=== PATIENT | female | born 1990 | race Caucasian/White ===

== ENCOUNTER 2017-06-30 16:01 | Emergency (ER) | payer OTHER ==
[~2017-06-30] VITALS: Ht 162.6 cm; Wt 72.6 kg
--- OUTSIDE RECORDS SUMMARY | ~2017-06-30 | XMS ---
Demographics + + + | Address | [address] | | | [place] [address] | + + + | Preferred Language | Unknown | + + + | Marital Status | Unknown | + + + | Shinto Affiliation | Unknown | + + + | Race | Unknown | + + + | Ethnic Group | Unknown | + + + Author + + + | Author | [facility] | + + + | Organization | [facility] | + + + | Address | [address] | | | [place] [address] | + + + | Phone | | + + + Care Team Providers + + + + | Care College Sports Coach Name | Role | Phone | + + + + Unavailable | Unavailable | + + + + PROBLEMS Unknown Problems ALLERGIES Unknown Allergies SOCIAL HISTORY No smoking Hx information available PLAN OF CARE VITAL SIGNS MEDICATIONS Unknown Medications RESULTS No Results PROCEDURES No Known procedures IMMUNIZATIONS No Known Immunizations"
[~2017-06-30 16:01] MED LIST: DOXYCYCLINE HY100 MG PO; NORCO 5-325 TA1 EACH PO; PRENACARE TABL1 EACH PO; PROVENTIL HFA6.7 GM INH; TRAMADOL HCL50 MG PO; ZITHROMAX250 MG PO
--- NOTE | 2017-07-01 04:59 | EKG ---
[facility] [address] [facility] [place], [place] [address] Signed Normal sinus rhythm Normal ECG No previous ECGs available Confirmed by LUCERO SEXTON MD ([id number]) on 07/01/2017 4:58:49 AM Electronically Signed By: LUCERO SEXTON MD 07/01/17 0459 PATIENT NAME: BRITTANEY GUIDRY Electrocardiogram DATE OF : 89 PHYSICIAN: LUCERO SEXTON MD REPORT #: [id number] REPORT IS CONFIDENTIAL AND NOT TO BE RELEASED WITHOUT AUTHORIZATION
== END 2017-06-30 20:30 | disposition home or self-care (01) ==
LOC: ED 16:01
DX: R09.1 Pleurisy (principal); F17.200 Nicotine dependence, unspecified, uncomplicated
CPT/HCPCS: 36415; 71046; 85379; 93005; 93010; 96372; 99283; J1885

== ENCOUNTER 2018-02-22 21:58 | Inpatient (IN) | payer OTHER ==
--- OUTSIDE RECORDS SUMMARY | ~2018-02-22 | XMS | Clinical Summary ---
Demographics + + + | Address | [address] | | | [place] [address] | + + + | Home Phone | | + + + | Preferred Language | Unknown | + + + | Marital Status | Single | + + + | Restorationism Affiliation | Unknown | + + + | Race | Unknown | + + + | Ethnic Group | Unknown | + + + Author + + + | Author | [facility] | + + + | Organization | [facility] | + + + | Address | Unknown | + + + | Phone | Unavailable | + + + Care Team Providers + +------+ + | Care Barrel Inspector Tight Name | Role | Phone | + +------+ + | Dash Oneil DO | PP | | + +------+ + Allergies Not on File Current Medications Not on file Active Problems Not on file Social History + +-------+ +--------+------+ | Tobacco Use | Types | Packs/Day | Years | Date | | | | | Used | | + +-------+ +--------+------+ | Never Assessed | | | | | + +-------+ +--------+------+ + + + | Sex Assigned at | Date Recorded | | | | + + + | Not on file | | + + + Plan of Treatment Not on file Results Not on filefrom Last 3 Months"
--- OUTSIDE RECORDS SUMMARY | ~2018-02-22 | XMS | Clinical Summary ---
Demographics + + + | Address | [address] | | | [place] [address] | + + + | Home Phone | | + + + | Preferred Language | Unknown | + + + | Marital Status | Single | + + + | Pentecostal Affiliation | Unknown | + + + | Race | Unknown | + + + | Ethnic Group | Unknown | + + + Author + + + | Author | [facility] | | | and [place] | + + + | Organization | [facility] | | | and [place] | + + + | Address | Unknown | + + + | Phone | Unavailable | + + + Support + + +---------+ + | Name | Relationship | Address | Phone | + + +---------+ + | Nicky Dorado | ECON | Unknown | | + + +---------+ + Care Team Providers + +------+ + | Care Performance Engineer Name | Role | Phone | + +------+ + | Yareli Zurita NP | PP | | + +------+ + Allergies No Known Allergies Current Medications + + +-------+---------+------+------+-------+ | Prescription | Sig. | Disp. | Refills | Star | End | Statu | | | | | | t | Date | s | | | | | | Date | | | + + +-------+---------+------+------+-------+ | sertraline | Take 100 mg by mouth | | | | | Activ | | (ZOLOFT) 100 mg | Daily. | | | | | e | | tablet | | | | | | | + + +-------+---------+------+------+-------+ | buPROPion | Take 100 mg by mouth | | | | | Activ | | (WELLBUTRIN) 100 mg | 2 times daily. | | | | | e | | tablet | | | | | | | + + +-------+---------+------+------+-------+ Active Problems No known active problems Family History + + +------+ + | Medical History | Relation | Name | Comments | + + +------+ + | Hypertension | Maternal | | | | | Grandfath | | | | | er | | | + + +------+ + | Diabetes | Maternal | | | | | Grandmoth | | | | | er | | | + + +------+ + | Hypertension | Maternal | | | | | Grandmoth | | | | | er | | | + + +------+ + + +------+--------+ + | Relation | Name | Status | Comments | + +------+--------+ + | Maternal Grandfather | | | | + +------+--------+ + | Maternal Grandmother | | | | + +------+--------+ + Social History + + + +--------+ + | Tobacco Use | Types | Packs/Day | Years | Date | | | | | Used | | + + + +--------+ + | Former Smoker | E-Cigarettes | | 12 | 06/02/2004 - | | | | | | 06/02/2016 | + + + +--------+ + + +---+---+---+ | Smokeless Tobacco: | | | | | Never Used | | | | + +---+---+---+ + + | Comments: vapes about 2 times daily | + + + + +---------+ + | Alcohol Use | Drinks/We | oz/Week | Comments | | | ek | | | + + +---------+ + | No | | | | + + +---------+ + + + + | Sex Assigned at | Date Recorded | | | | + + + | Not on file | | + + + Last Filed Vital Signs + + + + | Vital Sign | Reading | Time Taken | + + + + | Blood Pressure | 122/70 | 12/31/2016831 PDT | + + + + | Pulse | 115 | 12/31/2016831 PDT | + + + + | Temperature | - | - | + + + + | Respiratory Rate | 16 | 12/31/2016831 PDT | + + + + | Oxygen Saturation | 90% | 12/31/2016831 PDT | + + + + | Inhaled Oxygen | - | - | | Concentration | | | + + + + | Weight | 66.7 kg (147 lb) | 12/31/2016831 PDT | + + + + | Height | 165.1 cm (5' 5") | 12/31/2016831 PDT | + + + + | Body Mass Index | 24.46 | 12/31/2016831 PDT | + + + + Plan of Treatment + + + + + | Health Maintenance | Due Date | Last Done | Comments | + + + + + | Vaccine: HPV (1 of 3 | | | | | - Female 3-dose | 2 | | | | series) | | | | + + + + + | Vaccine: | | | | | Dtap/Tdap/Td (1 - | 0 | | | | Tdap) | | | | + + + + + | Cervical Cancer | | | | | Screening (Pap) | 2 | | | + + + + + | Vaccine: Influenza | | | | | (#1) | 8 | | | + + + + + Results Not on filefrom Last 3 Months Insurance + +--------+ +--------+ +---------+ | Payer | Benefi | Subscriber | Type | Phone | Address | | | t Plan | ID | | | | | | / | | | | | | | Group | | | | | + +--------+ +--------+ +---------+ | [employer] | [employer] | [id number] | Medica | [phone] | | MEDICAID HMO | HEALTH | | id | [id number] | | | | [place] | | | | | | [place] | | | | | + +--------+ +--------+ +---------+ + +--------+ +--------+ + + | Guarantor Name | Accoun | Relation to | Date | Phone | Billing Address | | | t Type | Patient | of | | | | | | | | | | + +--------+ +--------+ + + | BRITTANEY GUIDRY | Person | Self [birth year] Home: | [address], | | | al/Fam | | 1989 | [phone] | [address] [place], | | | [place] | | | [phone] | [place] [address] | + +--------+ +--------+ + +
[2018-02-23] MEDS ORDERED: PRENA1 CHEW TA1.4 MG PO (01:56)
== END 2018-02-24 11:40 | disposition home or self-care (01) | DRG 774 ==
LOC: FBCO 21:58 → FBC 22:30
PROVIDERS: ADMIT Obstetrics & Gynecology
PROC: 10907ZC Drainage of Amniotic Fluid, Therapeutic from Products of Conception, Via Natural or Artificial Opening (ICD-10-PCS; 2018-02-22)
PROC: 00HU33Z Insertion of Infusion Device into Spinal Canal, Percutaneous Approach (ICD-10-PCS; 2018-02-22)
PROC: 3E0R3BZ Introduction of Anesthetic Agent into Spinal Canal, Percutaneous Approach (ICD-10-PCS; 2018-02-22)
PROC: 10E0XZZ Delivery of Products of Conception, External Approach (ICD-10-PCS; principal; 2018-02-23)
DX: O98.42 Viral hepatitis complicating childbirth (principal); O99.324 Drug use complicating childbirth; B19.20 Unspecified viral hepatitis C without hepatic coma; O76 Abnormality in fetal heart rate and rhythm complicating labor and delivery; O99.334 Smoking (tobacco) complicating childbirth; F17.210 Nicotine dependence, cigarettes, uncomplicated; O69.81X0 Labor and delivery complicated by cord around neck, without compression, not applicable or unspecified; F12.10 Cannabis abuse, uncomplicated; F15.10 Other stimulant abuse, uncomplicated; Z86.19 Personal history of other infectious and parasitic diseases; Z91.14 Patient's other noncompliance with medication regimen; Z3A.38 38 weeks gestation of pregnancy; Z37.0 Single live birth
CPT/HCPCS: 36415; 83036; 85027; J2590; J7120

== ENCOUNTER 2019-07-20 16:22 | Inpatient (IN) | payer OTHER ==
[~2019-07-20] VITALS: Ht 162.6 cm; Wt 78.0 kg
[~2019-07-20 16:22] MED LIST changes: +PRENA1 CHEW TA1.4 MG PO; +SERTRALINE HCL25 MG PO; +WELLBUTRIN SR150 MG PO; +ZOFRAN4 MG PO
--- NOTE | 2019-07-22 07:25 | PR ---
[facility] [address] [facility] [place], [place] [address] Signed PP Progress Notes Datetime Report Generated by CPN: 07/22/2019 07:25 SUBJECTIVE: [id number] Pain: Within normal limits Nausea/Vomiting: Denies Flatus: Yes Bowel Movement: Yes Vital Signs: [id number] Vital Signs: Reviewed; Within Normal Limits EXAM: [id number] Cardiovascular: Normal Respiratory: Normal Abdomen/Uterus: Normal Lochia: Normal Vulva/Perineum: Not Done Breasts: Not Done CVA Tenderness: Normal Extremities: Normal Incision: Not Applicable Progress: Normal Exam Comments: Fundus firm U-2 nontender IMPRESSION/PLAN/PROCEDURES: [id number] Impression: Normal progression Plan: Discharge Progress Notes: Pt seen and examined. Doing well. Ambulating, voiding, and tolerating full diet. Pain and lochia minimal. well. No fevers/chills or other concerns. Desires d/c home tomorrow. Planning tubal ligation and depo for pp contraception. Signing Physician: Ajay Haro DO Copies: ~ *Electronically Signed* 07/22/19 0725 AJAY HARO DO PATIENT NAME: BRITTANEY GUIDRY PROGRESS NOTE DATE OF : 89 PHYSICIAN: AJAY HARO DO RPT #: [id number] REPORT IS CONFIDENTIAL AND NOT TO BE RELEASED WITHOUT AUTHORIZATION
== END 2019-07-22 15:35 | disposition home or self-care (01) | DRG 805 ==
LOC: FBC 16:22
PROVIDERS: ADMIT Obstetrics & Gynecology
PROC: 3E0P7VZ Introduction of Hormone into Female Reproductive, Via Natural or Artificial Opening (ICD-10-PCS; 2019-07-20)
PROC: 10E0XZZ Delivery of Products of Conception, External Approach (ICD-10-PCS; principal; 2019-07-21)
PROC: 00HU33Z Insertion of Infusion Device into Spinal Canal, Percutaneous Approach (ICD-10-PCS; 2019-07-21)
PROC: 3E0R3BZ Introduction of Anesthetic Agent into Spinal Canal, Percutaneous Approach (ICD-10-PCS; 2019-07-21)
DX: O26.62 Liver and biliary tract disorders in childbirth (principal); K83.1 Obstruction of bile duct; Z37.0 Single live birth; O98.42 Viral hepatitis complicating childbirth; O99.324 Drug use complicating childbirth; Z3A.37 37 weeks gestation of pregnancy; O62.3 Precipitate labor; O99.334 Smoking (tobacco) complicating childbirth; F17.210 Nicotine dependence, cigarettes, uncomplicated; B19.20 Unspecified viral hepatitis C without hepatic coma; O99.344 Other mental disorders complicating childbirth; F32.9 Major depressive disorder, single episode, unspecified; F41.9 Anxiety disorder, unspecified; O77.0 Labor and delivery complicated by meconium in amniotic fluid; F15.11 Other stimulant abuse, in remission; F12.11 Cannabis abuse, in remission
CPT/HCPCS: 01960; 36415; 85027; A9270; J2590; J2795; J7121

== ENCOUNTER 2019-09-08 07:58 | Emergency (ER) | payer OTHER ==
[~2019-09-08] VITALS: Ht 162.6 cm; Wt 70.3 kg
== END 2019-09-08 08:08 | disposition home or self-care (01) ==
LOC: ED 07:58
DX: J00 Acute nasopharyngitis [common cold] (principal)

== ENCOUNTER 2023-01-28 23:20 | Inpatient (IN) | payer OTHER ==
[~2023-01-28] VITALS: Ht 162.6 cm; Wt 86.5 kg
--- OUTSIDE RECORDS SUMMARY | ~2023-01-28 | XMS | Continuity of Care Document ---
Demographics + + + | Address | [address] | | | [place] [address] | + + + | Preferred Language | Unknown | + + + | Marital Status | Never | + + + | Holiness Affiliation | Unknown | + + + | Race | White | + + + | Ethnic Group | Unknown | + + + Author + + + | Author | [facility] | + + + | Organization | [facility] | + + + | Address | [address] | | | [place] [address] | + + + | Phone | | + + + Care Team Providers + + + + | Care Acid Maker Name | Role | Phone | + + + + Unavailable | Unavailable | + + + + Allergies and Intolerances + + + + + + | date | description | facility | reaction | severity | + + + + + + | (no date) | No Known Drug | [facility] | (no reaction) | (no severity) | | | Allergies | | | | + + + + + + Encounters No information. Functional Status No information. Immunizations No information. Medications No information. Problems No information. Procedures No information. Results/Labs No information. Social History No information. Vital Signs No information."
--- OUTSIDE RECORDS SUMMARY | 2023-01-28 23:23 | XMS ---
PreManage Notification: BRITTANEY GUIDRY Security Mat Puncher Events No recent Security Events currently on file CRITERIA MET - PDMP CARE PROVIDERS -[place]- Dentist: Screen Printing Cloth Spreader [facility] PHONE: [phone] Lidia has no Care Guidelines for this patient. E.DConsuelo VISIT COUNT (12 MO.) 1 ANNIKA Miller TOTAL 1 NOTE: Visits indicate total known visits. ED/UCC VISIT TRACKING (12 MO.) 01/28/2023 23:21 ANNIKA Crawford [place] TYPE: Emergency COMPLAINT: - RT LEG PAIN INPATIENT VISIT TRACKING (12 MO.) No inpatient visits to display in this time frame [email or web address]
[2023-01-29] VITALS (12 sets, daily range): BP systolic 116–145; BP diastolic 74–86
[2023-01-29 00:07] LABS: BASOPHILS 0.1 % (0-2); EOSINOPHILS 2.5 % (0-6); HEMATOCRIT 30.3 % (35.0-50.0); HEMOGLOBIN 10.1 g/dL (12.0-18.0); LYMPHOCYTES 10.5 % (24-44); MCH 29.6 (27-36); MCHC 33.2 g/dl (30-36); MONOCYTES 12.4 % (0-12); NEUTROPHILS 74.5 % (39-80); PLATELET COUNT 205 K/uL (140-440); RBC 3.41 M/ul (4.3-5.7); RDW 13.6 (10.5-15.0)
[2023-01-29 00:19] LABS: INR 0.94 (0.80-1.30); PROTIME 12.2 Sec (11.2-14.2)
[2023-01-29 00:22] LABS: PARTIAL THROMBOPLASTIN TIME 33.4 Sec (22.9-41.3)
[2023-01-29 00:25] LABS: ALBUMIN 2.1 g/dL (3.4-5.0); ALBUMIN/GLOBULIN RATIO 0.41 (1.1-2.4); ANION GAP 13.7 (7-21); BILIRUBIN, TOTAL 0.3 ng/dL (0.2-1.0); CALCIUM 9.2 mg/dL (8.5-10.1); POTASSIUM 2.7 mmol/L (3.5-5.1); PROTEIN, TOTAL 7.2 g/dL (6.4-8.2)
[2023-01-29 00:35] LABS: INFLUENZA B NAA NEGATIVE (NEGATIVE); RESPIRATORY SYNCYTIAL VIR NAA NEGATIVE (NEGATIVE)
[2023-01-29 00:51] LABS: BILIRUBIN, URINE POSITIVE (negative); BLOOD/HGB, URINE NEGATIVE (Negative); KETONE, URINE TRACE (Negative); LEUK ESTERASE, URINE TRACE (negative); NITRITE, URINE NEGATIVE (negative); PH, URINE 5.5 (5-7)
[2023-01-29 00:53] LABS: ABO O; ANTIBODY SCREEN NEGATIVE; RH NEGATIVE
[2023-01-29 00:56] LABS: AMPHETAMINES, UR POSITIVE (NEGATIVE); MDMA, UR POSITIVE (NEGATIVE); METHAMPHETAMINE, UR POSITIVE (NEGATIVE)
[2023-01-29 00:57] LABS: BARBITURATES, UR NEGATIVE (NEGATIVE); BENZODIAZEPINES, UR NEGATIVE (NEGATIVE); BUPRENORPHINE,UR NEGATIVE (NEGATIVE); COCAINE, UR NEGATIVE (NEGATIVE); MARIJUANA (THC), UR NEGATIVE (NEGATIVE); METHADONE, UR NEGATIVE (NEGATIVE); OPIATES, UR NEGATIVE (NEGATIVE); OXYCODONE, UR NEGATIVE (NEGATIVE); PHENCYCLIDINE, UR NEGATIVE (NEGATIVE); TRICYCLIC ANTIDEPRESSANT, UR NEGATIVE (NEGATIVE)
[2023-01-29 00:58] LABS: EPITHELIAL CELLS, URINE SQUAMOUS 4+ /lpf (0-1+); RED BLOOD CELLS, URINE 0-1 /hpf (0-5)
[2023-01-29 00:59] LABS: BACTERIA, URINE 3+ /hpf (negative); CASTS, URINE NONE SEEN \\lpf; CRYSTALS, URINE NONE SEEN (0-1+); REFLEX CULTURE, URINE No (No)
[2023-01-29 03:51] LABS: N. GONORRRHOEAE BY PCR NOT DETECTED (NOT DETECT)
--- NOTE | 2023-01-29 04:27 | NUR ---
PT ARRIVED TO FLOOR AT 0230 AND BEDSIDE REPORT WAS GIVEN BY NO CHAPA, ALL QUESTIONS AND CONCERNS WERE ADDRESSED AT THIS TIME, PT IS EXPERIENCING EXTREME PAIN AND IS INCONSOLABLE, PRN DILAUDID GIVEN, PT IS A&O AND ABLE TO ANSWER SIMPLE QUESTIONS, PAIN IS INTERFERING WITH ABILITY TO ANSWER QUESTIONS THOROUGHLY, VSS, HR 130'S, SATING UPPER 90'S ON RA, PERIPHERAL PULSES PRESENT, PERIPHERAL EDEMA PRESENT IN ALL EXTREMITIES, BT+, HEARTBEAT AUSCULTATED, PT ON CONTINUOUS MONITOR, BED ALARMS ON FOR PT SAFETY, CALL LIGHT WITHIN REACH
--- NOTE | 2023-01-29 04:32 | NUR ---
PT RESTING COMFORTABLY, EASILY AROUSED, PT IS BEING MONTIORED CONTINUOUSLY ON SHIFT LAB TECHNICIAN, VSS, HR 100S, AFEBRILE, UPDATED ON PT STATUS, NO NEW ORDERS AT THIS TIME
--- NOTE | 2023-01-29 05:41 | EKG ---
[facility] [address] [facility] [place], [place] [address] Signed Sinus tachycardia Otherwise normal ECG When compared with ECG of 30-JUN-2017 16:26, No significant change was found Confirmed by TIM MÁRQUEZ MD ([id number]) on 01/29/2023 5:41:12 AM Electronically Signed By: TIM MÁRQUEZ 01/29/23 0541 PATIENT NAME: BRITTANEY GUIDRY MAGALY Electrocardiogram DATE OF : [birth year] PHYSICIAN: TIM MÁRQUEZ REPORT #: [id number] REPORT IS CONFIDENTIAL AND NOT TO BE RELEASED WITHOUT AUTHORIZATION
--- NOTE | 2023-01-29 08:23 | NUR ---
PATIENT RESTING IN BED, WOKE TO VOICE. BREAKFAST PROVIDED. VITALS CHARTED. LAB AT BEDSIDE FOR DRAW. CALL LIGHT IN EASY REACH
--- NOTE | 2023-01-29 08:36 | NUR ---
PT ASSESSMENT AND MEDICATION ADMINISTRATION COMPLETED. PT IS A/O, RESPIRATIONS EVEN AND REGULAR. IV FLUIDS RUNNING. DENIES NEEDS ATT. CALL LIGHT WITHIN REACH.
--- NOTE | 2023-01-29 08:43 | NUR ---
PT ASSESSMENT AND MEDICATION ADMINISTRATION COMPLETED. PT IS DROWSY BUT A/O, RESPIRATIONS EVEN AND REGULAR. IV FLUIDS RUNNING. MD AT BEDSIDE, ULTRASOUND AT BEDSIDE.
[2023-01-29 08:48] LABS: HEMATOCRIT 25.7 % (35.0-50.0)
[2023-01-29 08:49] LABS: BASOPHILS 0.4 % (0-2); EOSINOPHILS 2.6 % (0-6); HEMOGLOBIN 8.6 g/dL (12.0-18.0); LYMPHOCYTES 11.3 % (24-44); MCH 29.8 (27-36); MCHC 33.6 g/dl (30-36); MCV 88.5 fl (81-99); MONOCYTES 9.7 % (0-12); PLATELET COUNT 166 K/uL (140-440); RDW 13.7 (10.5-15.0)
[2023-01-29 08:57] LABS: ALBUMIN 1.5 g/dL (3.4-5.0); ALBUMIN/GLOBULIN RATIO 0.38 (1.1-2.4); ANION GAP 14.4 (7-21); BILIRUBIN, TOTAL 0.2 ng/dL (0.2-1.0); BUN/CREATININE RATIO 15.06 (6.0-28.6); CALCIUM 7.9 mg/dL (8.5-10.1); CREATININE, SERUM 0.73 mg/dL (0.55-1.02); POTASSIUM 3.4 mmol/L (3.5-5.1); PROTEIN, TOTAL 5.5 g/dL (6.4-8.2)
--- NOTE | 2023-01-29 09:03 | NUR ---
UNABLE AT THIS TIME TO DO A ORACLE EBS DEVELOPERSCHOOL COORDINATOR. PATIENT HAS X-RAY IN THE ROOM DOING A OB ULTRASOUND.
[2023-01-29 09:27] LABS: ABO O; RH NEGATIVE
--- NOTE | 2023-01-29 10:11 | NUR ---
[facility] NURSE AT BEDSIDE TO PLACE MONITOR. DR. KRISHNAMURTHY AT BEDSIDE.
--- NOTE | 2023-01-29 10:36 | NUR ---
RETURNED TO DO THE PT.DC ASSESSMENT. PATIENT IS SLEEPING, WILL RETURN LATER.
--- NOTE | 2023-01-29 12:00 | NUR ---
ASSISTED PT WITH BED FAN AND LUNCH TRAY SET UP. PT IS A/O, BUT DROWSY. RESPIRATIONS EVEN AND REGULAR. RLE HAS SMALL AMOUNT OF DRAINAGE. CALL LIGHT WITHIN REACH.
--- NOTE | 2023-01-29 13:06 | NUR ---
SPOKE TO PATIENT ABOUT HER DISCHARGE. PATIENT IS 32 WEEKS . PATIENT STATES SHE DOES NOT KNOW WHO THE FATHER IS. PATIENT STATES SHE HAS USED DRUGS IN THE PAST. PATIENT GIVEN A [employer] CARD TO HELP WITH DRUG REHAB.PT.DOES NOT WANT TO CALL [facility] AT THIS TIME. PATIENT STATES SHE WILL BE GIVING THE BABY UP FOR ADOPATION. PATIENT IS HOMELESS AT THIS TIME. PATIENT STATES SHE WILL BE LIVING WITH A FRIEND WHEN SHE IS DISCHARGED FROM THE HOSPITAL. PATIENT CAN DO HER OWN ADLS. PATIENT ALSO DRIVES HER OWN CAR. PATIENT IS NOT WORKING AT THIS TIME. PATIENT ENCOURAGED TO LET CASE MANAGMENT HELP, PATIENT DECLINED HELP. WILL MONITOR THIS PATIENT'S NEEDS CLOSELY AND WILL HELP IF PATIENT WILL ALLOW. PATIENT HAS CONTACTED [employer] IN THE PAST FOR HELP.
--- NOTE | 2023-01-29 14:11 | NUR ---
PT IN BED WEEPING. DECLINED CONVERSATION AND DENIED NEEDS. CONSENTED TO PRAYER. PRAYED FOR HEALING AND ONGOING BLESSING.
--- NOTE | 2023-01-29 14:36 | NUR ---
PT ASSESSMENT COMPLETED. PT IS TEARFUL C/O R KNEE PAIN. PT JUST FINISHED ON BEDPAN. MOVEMENT CONTRIBUTING TO PAIN. CALL LIGHT WITHIN REACH.
[2023-01-29] MEDS ORDERED: LAMOTRIGINE25 MG PO (15:00)
--- NOTE | 2023-01-29 15:03 | NUR ---
medications reconciled using pharmacy records and patient interview
--- NOTE | 2023-01-29 16:45 | NUR ---
PATIENT NOTED TO BE CRYING AND ON THE PHONE WITH HER MOTHER. PATIENT STARTS TO RIP THINGS OFF AND STATES,"I'M GOING HOME, I NEED TO GET OUT OF HERE." ATTEMPTS BEING MADE TO HELP CALM PATIENT AND COLD WASH CLOTH GIVEN. DR. MÁRQUEZ CALLED FOR SOMETHING FOR ANXIETY. PRN ORDERS TO BE GIVEN.
--- NOTE | 2023-01-29 18:19 | NUR ---
DR. KRISHNAMURTHY IN ROOM TO SEE PATIENT AND PLAN OF CARE DISCUSSED. PT WILL HAVE A REPEAT NST TOMORROW PER DR. KRISHNAMURTHY. PT'S MOTHER REMAINS IN ROOM AND ASKING QUESTIONS ABOUT SITUATION AND PT'S CONDITION.
--- NOTE | 2023-01-29 20:00 | NUR ---
PATIENT REPORTS 10/10 PAIN IN HER RIGHT KNEE/LEG. DISCUSSED WITH . JAN OXY ORDERED AND PROVIDED. PATIENT DENIED ANY OTHER NEEDS AT THIS TIME. CALL LIGHT IN REACH.
--- NOTE | 2023-01-29 20:15 | NUR ---
FETAAL HR ON DOPPLER 160 BPM
--- NOTE | 2023-01-29 22:00 | NUR ---
PATIENT ASSISTED TO USE THE BEDPAN. PATIENT IS REPORTING 10/10. PATIENT IS VERY RESTLESS, HR INCREASED TO 120'S AND BREATHING LABORED. ENCOURAGED PATIENT TO CALM AND PROVIDED WITH PRN DILAUDID. PAIN UNCHANGED AND PATIENT REPORTS IT IS SEVERE PAIN IN LEFT KNEE. PATIENT REQUESTING MEDICATION FOR ANXIETY WELL. DISCUSSED WITH . ORDERS RECEIVED AND VERIFIED VIA REPEAT BACK. PATIENT'S VS STABLE. PULSE NOTED IN LEFT LEG. CAP REFILL LESS THAN 3 SECONDS. LEG IS HOT TO THE TOUCH AND RED, CONSISTENT WITH PREVIOUSLY ASSESSMENT. IV ABX STARTED PER ORDER, SITE WNL. ENCOURAGED PATIENT TO REST. CALL LIGHT IN REACH.
--- NOTE | 2023-01-29 23:54 | NUR ---
PATIENT APPEARS TO BE SLEEPING AT THIS TIME. EYES CLOSED. RR 19. HR 90. CALL LIGHT IN REACH.
[2023-01-30 02:00] VITALS: BP 124/77
--- NOTE | 2023-01-30 02:00 | NUR ---
PATIENT CALLED TO USE THE BEDPAN. REPORTS PAIN 18/10, DOES NOT APPEAR UNCOMFORTABLE SHE WAS PREVIOUSLY. PRN OXY PROVIDED. PATIENT VS STABLE. RIGHT LEG ELEVATED; NO INCREASED REDNESS OR CHANGES IN ASSESSMENT FINDINGS. PATIENT PROVIDED FRESH ICE WATER. NO OTHER NEEDS AT THIS TIME.
--- NOTE | 2023-01-30 03:05 | NUR ---
PATIENT CONTINUES TO YELL AND CRY OUT IN PAIN. PAIN IN HER BACK AND RIGHT KNEE. PATIENT REPORTS PAIN IN HER BACK IS CHRONIC AND DENIES THAT IT MIGHT BE LABOR PAIN. WARM PACK APPLIED. PATIENT PROVIDED PRN DILAUDID.
[2023-01-30 05:53] LABS: BASOPHILS 0.3 % (0-2); EOSINOPHILS 2.4 % (0-6); HEMATOCRIT 25.1 % (35.0-50.0); HEMOGLOBIN 8.5 g/dL (12.0-18.0); MCH 29.8 (27-36); MCHC 33.7 g/dl (30-36); MCV 88.3 fl (81-99); MONOCYTES 7.3 % (0-12); PLATELET COUNT 183 K/uL (140-440); RBC 2.84 M/ul (4.3-5.7); RDW 13.9 (10.5-15.0)
[2023-01-30 06:16] LABS: ALBUMIN 1.4 g/dL (3.4-5.0); ALBUMIN/GLOBULIN RATIO 0.35 (1.1-2.4); ANION GAP 15.2 (7-21); BILIRUBIN, TOTAL 0.2 ng/dL (0.2-1.0); BUN/CREATININE RATIO 11.32 (6.0-28.6); CALCIUM 8.1 mg/dL (8.5-10.1); CREATININE, SERUM 0.53 mg/dL (0.55-1.02); MAGNESIUM 1.6 mg/dL (1.8-2.4); POTASSIUM 3.2 mmol/L (3.5-5.1); PROTEIN, TOTAL 5.4 g/dL (6.4-8.2)
[2023-01-30 06:19] VITALS: BP 130/87
--- NOTE | 2023-01-30 06:30 | NUR ---
PATIENT CALLING OUT FREQUENTLY FOR PAIN 10/10 IN HER BACK AND RIGHT LEG. PRN PAIN MEDS PER ORDER. VS STABLE. PATIENT ASSISTED TO USE THE BEDPAN. URINE IS DARK JULIO C COLORED. IV ABX PER ORDER, SITE WNL. CALL LIGHT IN REACH. RIGHT LEG IS UNCHANGED. ELEVATED ON PILLOWS. ICE PACK FOR LEG AND HEATING PACK PROVIDED FOR HER BACK.
--- NOTE | 2023-01-30 07:30 | NUR ---
REPORT RECIEVED FROM LABORER LABORATORY RN. PATIENT RESTING IN BED. PER REPORT PATIENT IS GOING THROUGH WITHDRAWLS AND PAIN HAS BEEN DIFFICULT TO CONTROL. PER REPORT PATIENT HAS BLISTERES ON HER UPPER THIGH. CALL LIGHT WITHIN REACH AND PT CALLS APPROPRIATELY.
--- NOTE | 2023-01-30 08:15 | NUR ---
Stopped to speak with pt. Dr. Park present, pt withdrawing. Reminded them pt is with [facility] and they have a program called [facility] for moms with addiction. Let them know pt has not given me permission to speak with [facility] at this time. If she gives permission I will notify them she is here.
--- NOTE | 2023-01-30 08:15 | NUR ---
PATIENTS ASSESSMENT COMPLETED AND MEDICATIONS GIVEN. PATIENT REPROTING 12/10 PAIN IN LEG AND BACK. PATIENT REPROTS BACK PAIN IS NORMAL FOR HER AND DENIES CONTRACTIONS. PATIENT WILL NOT LET STAFF GET VITALS THIS MORNING. PATIENT TOOK MEDICATIONS WITH NO ISSUES. PATIENT DENEID BREAKFAST. PATIENT STATES "DAMNIT IM GOING THROUGH WITHDRAWLS AND I NEVER WANT TO DO THIS AGAIN, JOSE DONE IT BEFORE AND I CANT DO THIS". THIS RN AND HELGA AC HAVE BEEN AT PATIENTS BEDSIDE MOST OF THE MORNING. PATIENT UP TO THE CHAIR WITH NO ISSUES AND ABLE TO BEAR WEIGHT ON HER RIGHT LEG.
--- NOTE | 2023-01-30 08:30 | NUR ---
MD MÁRQUEZ AND MD KRISHNAMURTHY IN TO SEE PATIENT THIS AM AND ADRESS PLAN. PATIENT HAS SAID SEVERAL TIMES DURING HER STAY SHE IS LEAVING AMA, BUT HAS NOT YET AT THIS POINT. NEW ORDERS FOR BETTER PAIN CONTROL AND ANXIETY WILL BE ADRESSED. PATIENT IS RESTLESS, ANXIOUS, IRRITABLE, AND HYPERSENSITIVE AT THIS TIME. PATIENT UP SITTING IN THE CHAIR. PATIENT CURRENTLY AGREEABLE TO PLAN OF CARE. UNABLE TO GET VITALS YET THIS AM D/T PATIENTS REFUSAL.
--- NOTE | 2023-01-30 08:51 | CONS ---
[facility] [address], [place] [address] Signed DATE OF CONSULTATION: 01/29/2023 REQUESTING PHYSICIAN: Dr. Toussaint, hospitalist. HISTORY OF PRESENT ILLNESS: The patient is a 32-year-old female, 5, para 3-1-0-3, who is admitted to the hospital through the emergency room early this am at 32 wks gestation for cellulitis of her right leg. The patient denies any knowledge of her until now. She denies any movement. She states she had been on control pills and was having irregular bleeding. She has had no care until this time. She was seen in the emergency room and was noted to have a right leg cellulitis, which extended from below the knee to the hip. It was extremely painful for her. She does have a complicated history in that she has a history of IV drug use, though she denies any recent IV drug use. She did relapse recently for meth and reported her last use was several days ago. She reports smoking only. She denies any injury to the leg. She has been scratching it. She thought she might have had allergic reaction potentially and did not think too much of it until it became more painful and swollen. She denies fever. 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 She has hx of prior IV drug use. PAST MEDICAL HISTORY AND SURGERIES: Surgery for an elbow fracture. Medical history is positive for history of IV drug use Positive for hepatitis C. Positive for anemia. Positive for tobacco use. Negative for hypertension, diabetes, asthma, kidney problems. HABITS: Positive tobacco, approximately one pack per day. Negative for alcohol use. Positive for meth. ALLERGIES: NKDA MEDICATIONS: None PHYSICAL EXAMINATION: VITAL SIGNS: Vital signs are stable and she is afebrile. Electronically Signed By: MARCY PARK MD 01/30/23 0851 PATIENT NAME: BRITTANEY GUIDRY CONSULTATION DATE OF : [birth year] REPORT #: [id number] PHYSICIAN: MARCY PARK MD PCP: STACI BACA MD REPORT IS CONFIDENTIAL AND NOT TO BE RELEASED WITHOUT AUTHORIZATION [facility] [address], [place] [address] Signed GENERAL: She is a well-developed, disheveled woman, in no acute distress. She has a flat affect. She appears much older than her stated age. LUNGS: Clear. HEART: Regular rate and rhythm without murmur. ABDOMEN: Gravid. Soft and nontender. EXTREMITIES: Right lower extremity is quite edematous and erythematous predominantly around the knee and on the right hip. The left leg has mild swelling. The initial Ultrasound done in ED showed a 26i0mgy with an VALENTINE of 3. Ultrasound repeated this morning showed a biophysical of 8/8 and an VALENTINE of 7.7, and NST was reactive. Labs this morning, white count of 8.1, H and H, 8.6 and 25.7, platelets 166k. Chemistry was remarkable for a slightly low potassium of 3.4, but otherwise normal ALT and normal LFTs. Urine was contaminated, but was otherwise negative. Urine tox screen was positive for meth, amphetamines, and MDMA. GC and CT were negative on urine screen. Remainder of panel still pending. IMPRESSION: A 32-year-old female, 5, para 3-1-0-3 at 32 weeks by late ultrasound with right leg cellulitis. She has had no care to this time. She is Rh negative and has not received any RhoGAM this . She also has a history of hepatitis C, anemia, and smoking. PLAN: panel pending. Start iron supplementation. RhoGAM today. Daily NSTs while hospitalized. Information given on adoption per patient request. Marcy Park MD PJW/MODL /[id number] Electronically Signed By: MARCY PARK MD 01/30/23 0851 PATIENT NAME: BRITTANEY GUIDRY CONSULTATION DATE OF : [birth year] REPORT #: [id number] PHYSICIAN: MARCY PARK MD PCP: STACI BACA MD REPORT IS CONFIDENTIAL AND NOT TO BE RELEASED WITHOUT AUTHORIZATION [address] [place], [place] [address] Signed Copies: ~ Electronically Signed By: MARCY PARK MD 01/30/23 0851 PATIENT NAME: BRITTANEY GUIDRY CONSULTATION DATE OF : [birth year] REPORT #: [id number] PHYSICIAN: MARCY PARK MD PCP: STACI BACA MD REPORT IS CONFIDENTIAL AND NOT TO BE RELEASED WITHOUT AUTHORIZATION
--- NOTE | 2023-01-30 09:00 | NUR ---
MD MÁRQUEZ AND MD KRISHNAMURTHY NOTIFEIED THAT PATIENT IS LEAVING AMA. WILL HAVE PATIENT SIGN PAPERWORK AND APT MADE FOR FOLLOWUP CARE WITH MD KRISHNAMURTHY. IV DCD.
[2023-01-30] MEDS ORDERED: CLEOCIN HCL300 MG PO (09:25)
[2023-01-30] MEDS ORDERED: CEFDINIR300 MG PO (09:25)
--- NOTE | 2023-01-30 09:30 | NUR ---
PATIENT HAD A FRIEND SHOW UP AND PATIENT REMOVED ALL DEVICES AND STATED "IM DONE IM LEAVING". PATIENT DID ALLOW STAFF TO DO HEART TONES PRIOR TO LEAVING AGAINST MEDICAL ADVICE. REVIEWED RISK OF LEAVING INCUKDING WORSENING OF CONDITION, LOSS OF LIFE, INFECTION, HARM/LOSS OF FETUS. PATIENT VERBALIZED UNDERSTANDING OF LEAVING. PAPERWORK SIGNED. PATIENT LEFT IN A HURRY AND LEFT HER BLACK BAG OF PERSNOAL BELONGINGS. CALLED NUMBER ON FILE AND STATES LINE IS NOT ACTIVE. NOTIFIED POA WITH NO ANSWER. PATIENT WHEELED OUT VIA WHEELCHAIR FOR PATIENTS SAFETY BY JORDI LUNDY. IV WAS DCD AND VITALS TAKEN PRIOR TO DC. APT MADE FOR PATIENT TO FOLLOW UP WITH MD KRISHNAMURTHY AND CARD GIVEN TO PATIENT FOR APT.
--- NOTE | 2023-01-30 09:30 | NUR ---
FHT-160 WITH BEDSIDE DOPPLER. MD KRISHNAMURTHY NOTIED AND APT WAS SET UP AT THAT TIME.
[2023-01-30 10:09] VITALS: BP 135/88
[2023-01-30 10:31] LABS: HEPATITIS B SURFACE ANTIGEN Negative (Negative)
--- NOTE | 2023-01-30 11:00 | NUR ---
Notified by NO Mcdowell, pt would like [facility] notified she is in the hospital.
--- NOTE | 2023-01-30 11:31 | NUR ---
JAE BROWN WAS LEFT BEHIND WHEN SHE LEFT AMA, [facility] IS "NEXT OF KIN" AND HAS BEEN CALLED, VOICEMAIL LEFT AT 11:30AM.
[2023-01-30 11:49] LABS: HIV 1,2 COMBO ANTIGEN/ANTIBODY Negative (Negative)
[2023-01-30 12:21] LABS: HEPATITIS C AB CIA INTERP High Pos (Negative); HEPATITIS C ANTIBODY CIA INDEX >11.00 IV (())
--- NOTE | 2023-01-30 14:00 | NUR ---
Called and left message with [facility], pt was admitted but has gone AMA. She is 32 weeks gestation and wanted them to know she has been hospitalized.
[2023-01-31 01:02] LABS: HCV QNT BY NAAT (IU/ML) Not Detected (()); HCV QNT BY NAAT (LOG IU/ML) Not Detected (()); HCV QNT BY NAAT INTERP Not Detected (Not Detected)
== END 2023-01-30 09:30 | disposition left against medical advice (07) | DRG 832 ==
LOC: ED 23:20 → CCU 01-29 01:12 → MS 01-29 01:12 → CCU 01-29 02:14
PROVIDERS: Family Medicine; Obstetrics & Gynecology; ADMIT Family Medicine; ATTEND Family Medicine
DX: O99.713 Diseases of the skin and subcutaneous tissue complicating pregnancy, third trimester (principal); L03.115 Cellulitis of right lower limb; O41.03X0 Oligohydramnios, third trimester, not applicable or unspecified; O99.323 Drug use complicating pregnancy, third trimester; F15.90 Other stimulant use, unspecified, uncomplicated; F12.90 Cannabis use, unspecified, uncomplicated; F17.210 Nicotine dependence, cigarettes, uncomplicated; O99.283 Endocrine, nutritional and metabolic diseases complicating pregnancy, third trimester; O99.333 Smoking (tobacco) complicating pregnancy, third trimester; E87.6 Hypokalemia; Z53.29 Procedure and treatment not carried out because of patient's decision for other reasons; E83.42 Hypomagnesemia; M54.9 Dorsalgia, unspecified; G89.29 Other chronic pain; Z3A.32 32 weeks gestation of pregnancy; Z79.899 Other long term (current) drug therapy; Z98.890 Other specified postprocedural states; Z71.51 Drug abuse counseling and surveillance of drug abuser; Z20.822 Contact with and (suspected) exposure to COVID-19
CPT/HCPCS: 36415; 76815; 76818; 80053; 81001; 83605; 83735; 84702; 85025; 85610; 85730; 86762; 86780; 86803; 86850; 86900; 86901; 87340; 87502; 93005; 93010; 93971; A9270; J0696; J1170; J2270; J2790; J3010; J3490; J7030; U0002

== ENCOUNTER 2023-03-16 08:10 | Inpatient (IN) | payer OTHER ==
[~2023-03-16] VITALS: Ht 152.4 cm; Wt 72.6 kg
[~2023-03-16 08:10] MED LIST changes: +CEFDINIR300 MG PO; +CLEOCIN HCL300 MG PO; +LAMOTRIGINE25 MG PO
[2023-03-16 09:22] LABS: BASOPHILS 0.1 % (0-2); EOSINOPHILS 0.5 % (0-6); HEMATOCRIT 29.5 % (35.0-50.0); HEMOGLOBIN 9.6 g/dL (12.0-18.0); LYMPHOCYTES 25.7 % (24-44); MCH 26.6 (27-36); MCHC 32.5 g/dl (30-36); MCV 81.8 fl (81-99); MONOCYTES 8.3 % (0-12); NEUTROPHILS 65.4 % (39-80); PLATELET COUNT 197 K/uL (140-440); RBC 3.61 M/ul (4.3-5.7); RDW 15.4 (10.5-15.0)
--- NOTE | 2023-03-16 09:28 | NUR ---
RT COLLECTED RAPID COVID 19 SWAB AT THIS TIME WITH NO COMPLICATIONS.
[2023-03-16 09:36] LABS: ALBUMIN/GLOBULIN RATIO 0.41 (1.1-2.4); ANION GAP 15.1 (7-21); BILIRUBIN, TOTAL 0.5 ng/dL (0.2-1.0); BUN/CREATININE RATIO 10.25 (6.0-28.6); CALCIUM 8.7 mg/dL (8.5-10.1); CREATININE, SERUM 0.78 mg/dL (0.55-1.02); POTASSIUM 4.1 mmol/L (3.5-5.1); PROTEIN, TOTAL 6.9 g/dL (6.4-8.2)
[2023-03-16 10:15] LABS: N. GONORRRHOEAE BY PCR NOT DETECTED (NOT DETECT)
[2023-03-16 10:19] LABS: ABO O
[2023-03-16 10:20] LABS: ANTIBODY SCREEN POSITIVE; RH NEGATIVE
[2023-03-16 10:47] LABS: ANTIBODY IDENTIFICATION ANTI-D
[2023-03-16 11:33] LABS: CREATININE, RANDOM URINE 136.56 mg/dL (NOT ESTABLISHED); PROTEIN/CREATININE RATIO 4.93 mg/mg (0.010-0.107)
[2023-03-16 11:41] LABS: AMPHETAMINES, URINE POSITIVE (NEGATIVE); BARBITURATES, URINE NEGATIVE (NEGATIVE); BENZODIAZEPINE, URINE NEGATIVE (NEGATIVE); BUPRENORPHINE, URINE NEGATIVE (NEGATIVE); CANNABINOID, URINE NEGATIVE (NEGATIVE); COCAINE, URINE NEGATIVE (NEGATIVE); ECSTASY, URINE POSITIVE (NEGATIVE); FENTANYL, URINE POSITIVE (NEGATIVE); METHADONE, URINE NEGATIVE (NEGATIVE); OPIATES, URINE NEGATIVE (NEGATIVE); OXYCODONE, URINE NEGATIVE (NEGATIVE); PHENCYCLIDINE, URINE NEGATIVE (NEGATIVE)
[2023-03-16 13:32] LABS: INFLUENZA B NAA NEGATIVE (NEGATIVE); RESPIRATORY SYNCYTIAL VIR NAA NEGATIVE (NEGATIVE)
[2023-03-16 16:28] VITALS: BP 152/88
[2023-03-17 07:41] LABS: HEMATOCRIT 27.5 % (35.0-50.0); HEMOGLOBIN 8.8 g/dL (12.0-18.0); MCH 26.7 (27-36); MCHC 32.1 g/dl (30-36); MCV 83.2 fl (81-99); RBC 3.3 M/ul (4.3-5.7); RDW 15.7 (10.5-15.0)
[2023-03-17 07:55] LABS: ALBUMIN/GLOBULIN RATIO 0.44 (1.1-2.4); ANION GAP 10.8 (7-21); BILIRUBIN, TOTAL 0.3 ng/dL (0.2-1.0); BUN/CREATININE RATIO 6.89 (6.0-28.6); CALCIUM 8.2 mg/dL (8.5-10.1); CREATININE, SERUM 0.87 mg/dL (0.55-1.02); POTASSIUM 3.8 mmol/L (3.5-5.1); PROTEIN, TOTAL 6.5 g/dL (6.4-8.2)
--- NOTE | 2023-03-17 08:08 | PR ---
[facility] [place] [facility] [address] [place], [place] [address] Signed PP Progress Notes Datetime Report Generated by FEDE: 03/17/2023 08:08 SUBJECTIVE: [id number] Pain: Within Normal Limits Nausea/Vomiting: Denies Vital Signs: [id number] Vital Signs: Reviewed Notable Details: nonsevere HTN Cardiovascular: Normal Respiratory: Abnormal Abdomen/Uterus: Normal Lochia: Normal Vulva/Perineum: Abnormal Breasts: Not Done CVA Tenderness: Not Done Extremities: Normal Incision: Not Applicable Progress: Not Applicable Exam Comments: Somnolent but arousable Diffuse rhonchi and inspiratory and expiratory wheezes IMPRESSION/PLAN/PROCEDURES: [id number] Impression: Induced Hypertension Other Impression: Prob pneumonia; drug use Other Plans: CXR, IV Ancef, Sputum, nebs, IS, continue mag Progress Notes: Preeclampsia--Doing OK from standpoint other than her elevated BPs. Will continue mag at this time. Probable pneumonia--Her lung exam is very abnormal and am suspicious for a pneumonia. Will begin respiratory toilet/nebs/sputum/CXR with IV Ancef. 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
[2023-03-17 09:02] LABS: RAPID PLASMA REAGIN (RPR) Non Reactive (Non Reactive)
[2023-03-17 09:05] LABS: HEPATITIS B SURFACE ANTIBODY 19.31 IU/L (())
[2023-03-17 09:52] LABS: HEPATITIS B SURFACE ANTIGEN Negative (Negative)
[2023-03-17 09:58] LABS: HEPATITIS C AB CIA INTERP Negative (Negative); HEPATITIS C ANTIBODY CIA INDEX 0.03 IV (())
--- NOTE | 2023-03-17 13:20 | PR ---
[facility] [address] [place], [place] [address] Signed PP Progress Notes Datetime Report Generated by CPN: 03/17/2023 13:19 SUBJECTIVE: [id number] Pain: Within Normal Limits Pain Comments: very agitated, wanting to smoke Nausea/Vomiting: Denies Vital Signs: [id number] Vital Signs: Reviewed Notable Details: not severe HTN Cardiovascular: Normal Respiratory: Abnormal Abdomen/Uterus: Normal Lochia: Normal Vulva/Perineum: Abnormal Breasts: Not Done CVA Tenderness: Not Done Extremities: Normal Incision: Not Applicable Progress: Not Applicable Exam Comments: agitated IMPRESSION/PLAN/PROCEDURES: [id number] Impression: Induced Hypertension Other Impression: Prob pneumonia; drug use Other Plans: CXR, IV Ancef, Sputum, nebs, IS, continue mag Progress Notes: Very agitated. Wanting to smoke. Will try the patch. Also, Krystle Bella called and she will wait to talk to her also. Signing Physician: Marck Park MD Copies: ~ *Electronically Signed* 03/17/23 1319 MARCK PARK MD PATIENT NAME: BRITTANEY GUIDRY PROGRESS NOTE DATE OF : 91 PHYSICIAN: MARCK PARK MD RPT #: [id number] REPORT IS CONFIDENTIAL AND NOT TO BE RELEASED WITHOUT AUTHORIZATION
[2023-03-18 07:19] LABS: STREPTOCOCCUS (GROUP B) BY PCR Not Detected (()); STREPTOCOCCUS (GROUP B) SOURCE Vaginal/Rectal (())
--- NOTE | 2023-03-18 08:21 | PR ---
[facility] [address] [place], [place] [address] Signed PP Progress Notes Datetime Report Generated by CPN: 03/18/2023 08:21 SUBJECTIVE: [id number] Pain: Within Normal Limits Pain Comments: calm this am Nausea/Vomiting: Denies Bowel Movement: Yes Vital Signs: [id number] Vital Signs: Reviewed Notable Details: episode severe HTN this am Cardiovascular: Normal Respiratory: Abnormal Abdomen/Uterus: Abnormal Lochia: Normal Vulva/Perineum: Not Done Breasts: Not Done CVA Tenderness: Not Done Extremities: Abnormal Incision: Not Applicable Progress: Not Applicable Exam Comments: Lungs with inspiratory and expiratory wheezes but improved from prior exam. Decreased breath sounds in bases. Occ rhonchi Tight edema in LE but calves nontender IMPRESSION/PLAN/PROCEDURES: [id number] Impression: Induced Hypertension Other Impression: Pneumonia Other Plans: Stop mag, watch BPs, shower Progress Notes: Improved from yesterday. Preeclampsia--BPs much improved until this am. Will stop mag and observe BPs. Suspect will need oral antihypertensives. Unclear if she will be able to be discharged today, however. Opioid withdrawal--doing well with scheduled buprenorphine and clonidine. She has seen [facility] and has had intake though unclear whether or not she will continue with plan Rh neg--baby B neg so no Rhogam indicated Signing Physician: Marcy Park MD *Electronically Signed* 03/18/23820 MARCY PARK MD PATIENT NAME: BRITTANEY GUIDRY PROGRESS NOTE DATE OF : 91 PHYSICIAN: MARCY PARK MD RPT #: [id number] REPORT IS CONFIDENTIAL AND NOT TO BE RELEASED WITHOUT AUTHORIZATION
[2023-03-18 08:40] VITALS: BP 146/85
--- NOTE | 2023-03-18 13:19 | PR ---
[facility] [place] [facility] [address] [place], [place] [address] Signed PP Progress Notes Datetime Report Generated by CPN: 03/18/2023 13:19 SUBJECTIVE: [id number] Pain: Within Normal Limits Pain Comments: wants discharge Nausea/Vomiting: Denies Bowel Movement: Yes Vital Signs: [id number] Vital Signs: Reviewed Notable Details: HTN Cardiovascular: Normal Respiratory: Abnormal Abdomen/Uterus: Abnormal Lochia: Normal Vulva/Perineum: Not Done Breasts: Not Done CVA Tenderness: Not Done Extremities: Abnormal Incision: Not Applicable Progress: Not Applicable Exam Comments: Lungs with inspiratory and expiratory wheezes but improved from prior exam. Decreased breath sounds in bases. Occ rhonchi Tight edema in LE but calves nontender IMPRESSION/PLAN/PROCEDURES: [id number] Impression: Induced Hypertension Other Impression: Pneumonia Plan: Discharge Other Plans: Stop mag, watch BPs, shower Procedures: None Progress Notes: Pt desires discharge and will not stay another day though she has required additional antihypertensives today. She understands she is still at risk for stroke and seizure and that this risk has been sl decreased with delivery but not eliminated. She also understands meth use at this point would also increase her risk of stroke and . She states she will not use and will be staying with her mother. Signing Physician: Marcy Park MD *Electronically Signed* 03/18/23 1319 MARCY PARK MD PATIENT NAME: BRITTANEY GUIDRY PROGRESS NOTE DATE OF : 91 PHYSICIAN: MARCY PARK MD RPT #: [id number] REPORT IS CONFIDENTIAL AND NOT TO BE RELEASED WITHOUT AUTHORIZATION
== END 2023-03-18 14:00 | disposition home or self-care (01) | DRG 805 ==
LOC: FBCO 08:10 → FBC 08:15 → FBCO 03-26 10:08
PROVIDERS: Obstetrics & Gynecology; ADMIT Obstetrics & Gynecology; ATTEND Obstetrics & Gynecology
PROC: 10E0XZZ Delivery of Products of Conception, External Approach (ICD-10-PCS; principal; 2023-03-16)
PROC: 4A033R1 Measurement of Arterial Saturation, Peripheral, Percutaneous Approach (ICD-10-PCS; 2023-03-16)
PROC: 10907ZC Drainage of Amniotic Fluid, Therapeutic from Products of Conception, Via Natural or Artificial Opening (ICD-10-PCS; 2023-03-16)
DX: O14.14 Severe pre-eclampsia complicating childbirth (principal); J18.9 Pneumonia, unspecified organism; Z37.0 Single live birth; O99.324 Drug use complicating childbirth; F15.90 Other stimulant use, unspecified, uncomplicated; F11.90 Opioid use, unspecified, uncomplicated; O99.52 Diseases of the respiratory system complicating childbirth; O99.02 Anemia complicating childbirth; Z20.822 Contact with and (suspected) exposure to COVID-19; O13.4 Gestational [pregnancy-induced] hypertension without significant proteinuria, complicating childbirth; O62.3 Precipitate labor; O69.81X0 Labor and delivery complicated by cord around neck, without compression, not applicable or unspecified; D64.9 Anemia, unspecified; O99.334 Smoking (tobacco) complicating childbirth; F17.210 Nicotine dependence, cigarettes, uncomplicated; Z3A.38 38 weeks gestation of pregnancy
CPT/HCPCS: 36415; 71045; 80053; 80307; 82570; 82803; 83735; 84156; 85025; 85027; 86706; 86762; 86803; 86850; 86870; 86900; 86901; 87340; 87502; 87653; 94640; 94668; A9270; C9803; J0690; J2590; J3475; J7121; U0002